=== PATIENT | male | born 1970 | race African-American/Black ===

== ENCOUNTER 2016-07-10 10:54 | Emergency (ER) | payer MEDICARE | END 2016-07-10 12:30 | disposition home or self-care (01) | LOC: ER 10:54 | DX: M10.031 Idiopathic gout, right wrist (principal); I12.0 Hypertensive chronic kidney disease with stage 5 chronic kidney disease or end stage renal disease; N18.6 End stage renal disease; Z79.899 Other long term (current) drug therapy | CPT/HCPCS: 36415 ==

== ENCOUNTER 2016-07-19 09:22 | Emergency (ER) | payer MEDICARE | END 2016-07-19 12:08 | disposition short-term general hospital (02) | LOC: ER 09:22 | DX: J81.0 Acute pulmonary edema (principal); N19 Unspecified kidney failure; I10 Essential (primary) hypertension | CPT/HCPCS: 36415; 96365 ==